=== PATIENT | female | born 1950 | race Caucasian/White ===

== ENCOUNTER 2024-08-07 06:18 | Day surgery (SDC) | payer MEDICARE, SELFPAY | END 2024-08-07 14:17 | disposition home or self-care (01) | LOC: GI 06:18 | PROVIDERS: ATTENDING PHYSICIAN Internal Medicine Gastroenterology | DX: Z12.11 Encounter for screening for malignant neoplasm of colon (principal); Z80.0 Family history of malignant neoplasm of digestive organs; Q39.9 Congenital malformation of esophagus, unspecified; K44.9 Diaphragmatic hernia without obstruction or gangrene; K31.7 Polyp of stomach and duodenum; R13.10 Dysphagia, unspecified; R12 Heartburn | CPT/HCPCS: 43239; G0105; 88305 ==

== ENCOUNTER 2024-09-14 06:30 | Day surgery (SDC) | payer MEDICARE, SELFPAY | END 2024-09-14 13:49 | disposition home or self-care (01) | LOC: GI 06:30 | PROVIDERS: ATTENDING PHYSICIAN Family Medicine | DX: Z12.11 Encounter for screening for malignant neoplasm of colon (principal); Z80.0 Family history of malignant neoplasm of digestive organs; K64.8 Other hemorrhoids; K57.30 Diverticulosis of large intestine without perforation or abscess without bleeding | CPT/HCPCS: G0105 ==

== ENCOUNTER 2024-11-23 06:05 | Day surgery (SDC) | payer MEDICARE, SELFPAY ==
[2024-11-23 08:15] VITALS: BMI 25.6
[2024-11-23 08:16] VITALS: BMI 25.6
[2024-11-23 08:34] VITALS: BP 175/87
== END 2024-11-23 11:30 | disposition home or self-care (01) ==
LOC: GI 06:05
PROVIDERS: ATTENDING PHYSICIAN Internal Medicine Gastroenterology; FAMILY PHYSICIAN Family Medicine
DX: D12.0 Benign neoplasm of cecum (principal); D12.2 Benign neoplasm of ascending colon; D12.4 Benign neoplasm of descending colon; K57.30 Diverticulosis of large intestine without perforation or abscess without bleeding; Q43.8 Other specified congenital malformations of intestine; K64.0 First degree hemorrhoids
CPT/HCPCS: 45390; 45385; 88305